=== PATIENT | male | born 1935 | race Caucasian/White ===

== ENCOUNTER 2017-05-06 05:58 | Inpatient (IN) ==
[2017-05-06] MEDS ORDERED: DIAZEPAM 5 MG TABLET PO ONE (07:04)
[2017-05-06] MEDS ORDERED: ASPIRIN 325 MG TABLET PO ONE (07:04)
[2017-05-06] MEDS ORDERED: diphenhydrAMINE CAP 25 MG CAPSULE PO ONE (07:04)
[2017-05-06] MEDS ORDERED: POTASSIUM CHLORIDE RIDER 10 MEQ in PREMIX 1 EACH IV PRN (07:04)
[2017-05-06] MEDS ORDERED: MAGNESIUM SULF RIDER 2 GM in PREMIX 1 EACH IV PRN (07:04)
[2017-05-06] MEDS ORDERED: DIAZEPAM 5 MG TABLET ONE (07:15)
[2017-05-06] MEDS ORDERED: HEPARIN/NACL 0.9% 2 UNITS/ML 2,000 ML IV ONE (07:15)
[2017-05-06] MEDS ORDERED: diphenhydrAMINE CAP 25 MG CAPSULE ONE (07:15)
[2017-05-06] MEDS ORDERED: LIDOCAINE 1% 20 ML VIAL ONE (07:15)
[2017-05-06] MEDS: SODIUM CHLORIDE 0.9% 1,000 ML IV SCH (07:27)
[2017-05-06] MEDS ORDERED: HYDROmorphone 2 MG/1 ML VIAL ONE (07:36)
[2017-05-06] MEDS ORDERED: MIDAZOLAM 2 MG/2 ML VIAL ONE (07:36)
[2017-05-06] MEDS ORDERED: NITROGLYCERIN DRIP 50 MG/250 ML BOTTLE IV ONE (07:44)
[2017-05-06] MEDS ORDERED: VERAPAMIL 5 MG/2 ML VIAL ONE (07:44)
[2017-05-06] MEDS ORDERED: ENOXAPARIN 30 MG/0.3 ML SYRINGE ONE (08:00)
[2017-05-06] MEDS ORDERED: SODIUM CHLORIDE 0.9% 1,000 ML IV SCH (08:30)
[2017-05-06] MEDS: ASPIRIN EC 81 MG TABLET PO SCH (16:05)
[2017-05-06] MEDS ORDERED: ONDANSETRON 4 MG/2 ML VIAL IV PRN (18:45)
[2017-05-06] MEDS ORDERED: ZALEPLON 5 MG CAPSULE PO PRN (18:45)
[2017-05-06] MEDS ORDERED: ACETAMINOPHEN 325 MG TABLET PO PRN (18:45)
[2017-05-06] MEDS ORDERED: guaiFENesin/DM ER 600-30 MG TABLET PO PRN (18:45)
[2017-05-06] MEDS ORDERED: BISACODYL 5 MG TABLET PO PRN (18:45)
[2017-05-07] MEDS: PANTOPRAZOLE 40 MG TABLET PO SCH (09:12)
[2017-05-07] MEDS: ASPIRIN EC 81 MG TABLET PO SCH (09:12)
[2017-05-07] MEDS: CHLORHEXIDINE 0.12% ORAL RINSE 60 ML BOTTLE SWISH/SPIT SCH (11:28)
[2017-05-07] MEDS: SODIUM CHLORIDE 0.9% 1,000 ML IV SCH ×2 (11:31→11:54)
[2017-05-07 12:13] LABS: Basophils % 0.3 % (0.0-0.8); Eosinophils # 0.2 10*3/uL (0.0-0.87); Eosinophils % 2.6 % (0.00-10.9); Hematocrit 38.3 VOL% (42.0-52.0); Hemoglobin 12.6 GM/DL (14.0-18.0); Immature Granulocytes % 0.3 %; Immature Granulocytes Absolute 0.02 #; Lymphocytes # 1.6 10*3/uL (1.4-4.0); Lymphocytes % 25.9 % (21.2-54.2); Mean Corpuscular HGB Conc 32.9 GM/DL (32-36); Mean Corpuscular Hemoglobin 31 PG (27-34); Mean Corpuscular Volume 93.2 FL (87-102); Mean Platelet Volume 10.9 FL (9.6-12.0); Monocytes # 0.7 10*3/uL (0.11-0.8); Monocytes % 11.1 % (1.7-12.7); Neutrophils # 3.7 10*3/uL (1.4-7.4); Neutrophils % 59.8 % (38.7-73.9); Platelet Count 150 T/CUMM (130-400); Red Blood Count 4.11 MC/CUMM (3.8-5.5); White Blood Count 6.1 T/CUMM (4-12)
[2017-05-07 12:43] LABS: Calcium 8.5 MG/DL (8.5-10.1); Magnesium 2.2 MG/DL (1.8-2.4); Osmolality,Calculated 285.1 MOS/KG (273-304); Potassium 4.5 MMOL/L (3.5-5.1)
[2017-05-07] MEDS ORDERED: MAGNESIUM HYDROXIDE SUSP 30 ML UDCUP PO PRN (17:13)
[2017-05-07] MEDS ORDERED: CHLORHEXIDINE 0.12% ORAL RINSE 60 ML BOTTLE SWISH/SPIT SCH (21:00)
[2017-05-08] MEDS: CHLORHEXIDINE 4% SOLN 118 ML BOTTLE TOP SCH ×2 (00:51→04:52)
[2017-05-08] MEDS: CHLORHEXIDINE 0.12% ORAL RINSE 60 ML BOTTLE SWISH/SPIT SCH ×2 (00:51→20:29)
[2017-05-08] MEDS ORDERED: VANCOMYCIN 1,000 MG VIAL ONE (05:21)
[2017-05-08] MEDS ORDERED: TISSUE ADHESIVE 1 EACH APPLICATOR TOP ONE (05:21)
[2017-05-08] MEDS ORDERED: PAPAVERINE 60 MG/2 ML VIAL ONE (05:21)
[2017-05-08] MEDS: PANTOPRAZOLE 40 MG TABLET PO SCH (05:54)
[2017-05-08] MEDS ORDERED: FAMOTIDINE 20 MG TABLET PO ONE (06:00)
[2017-05-08] MEDS ORDERED: CEFUROXIME INJ 1,500 MG in SODIUM CHLORIDE 0.9% 100 ML IV ONE (06:00)
[2017-05-08] MEDS ORDERED: DIAZEPAM 5 MG TABLET PO ONE (06:00)
[2017-05-08] MEDS ORDERED: DEXMEDETOMIDINE 200 MCG/2 ML VIAL IV ONE (06:15)
[2017-05-08 08:24] LABS: ABG Base Excess -0.6 MMOL/L (-2.5-2.5); ABG Oxygen Saturation 99.5 % (95-100); ABG PCO2 46.2 MM HG (35-48); ABG PH 7.348 (7.35-7.45); ABG TCO2 22.8 MMOL/L (23-27); Glucose Heart Surgery 132 MG/DL (74-106); Hematocrit Heart Surgery 35.4 PERCENT (42-52); Hemoglobin Heart Surgery 11.5 G/DL (14.0-18.0); PCO2 Patient Temp Arterial 46.2 MMHG; PH Patient Temp Arterial 7.348; Patient Temperature 37 CELCIUS; Potassium Heart/CVR 3.9 MMOL/L (3.5-5.1); Sodium Heart/CVR 140 MMOL/L (135-145)
[2017-05-08 08:39] LABS: Apearance,Urine CLEAR (Clear); Bilirubin,Urine Negative (Negative); Blood, Urine Negative (Negative); Glucose,Urine (UA) Negative (Negative); Ketones,Urine Negative (Negative); Nitrite,Urine Negative (Negative); Protein,Urine Negative; RBC,Urine 1 /HPF (0-4); Urine Color Straw (Yellow); Urine Specific Gravity 1.004 (1.001-1.035); Urine Urobilinogen < 2.0 EU/DL (0.2-1.0); WBC,Urine <1 /HPF (0-6)
[2017-05-08 09:50] LABS: Hemoglobin Heart Surgery 7.7 G/DL (14.0-18.0); PCO2 Patient Temp Venous 38.2 MM HG; PH Patient Temp Venous 7.444; PO2 Patient Temp Venous 37.9 MM HG; Potassium Heart/CVR 4.5 MMOL/L (3.5-5.1); VBG Base Excess 2.3 MEQ/L (0-4); VBG HCO3 26.2 MEQ/L (24-28); VBG Oxygen Saturation 79.3 %; VBG PCO2 44.1 MMHG (41-51); VBG PH 7.4; VBG PO2 46.6 MMHG (17-40)
[2017-05-08 10:08] LABS: Hematocrit Heart Surgery 24.7 PERCENT (42-52); Hemoglobin Heart Surgery 7.9 G/DL (14.0-18.0); PCO2 Patient Temp Venous 35.5 MM HG; PH Patient Temp Venous 7.509; PO2 Patient Temp Venous 34.6 MM HG; Potassium Heart/CVR 4.8 MMOL/L (3.5-5.1); VBG Base Excess 5.1 MEQ/L (0-4); VBG HCO3 28.8 MEQ/L (24-28); VBG Oxygen Saturation 77.6 %; VBG PCO2 39.1 MMHG (41-51); VBG PH 7.478; VBG PO2 39.8 MMHG (17-40)
[2017-05-08] MEDS ORDERED: NITROPRUSSIDE 50 MG/2 ML VIAL ONE (10:36)
[2017-05-08] MEDS ORDERED: SODIUM BICARBONATE 50 MEQ/50 ML SYRINGE IV ONE ×2 (10:37→11:08)
[2017-05-08] MEDS ORDERED: ATROPINE 1 MG/10 ML SYRINGE ONE (10:37)
[2017-05-08] MEDS ORDERED: PHENYLEPHRINE DRIP 0 MG/0 ML PREMIX IV ONE (10:37)
[2017-05-08] MEDS ORDERED: EPINEPHrine 1 MG/10 ML SYRINGE ONE (10:37)
[2017-05-08] MEDS ORDERED: CALCIUM CHLORIDE 1,000 MG/10 ML SYRINGE IV ONE (10:37)
[2017-05-08] MEDS ORDERED: POTASSIUM CHLORIDE RIDER 100 ML IV ONE (10:38)
[2017-05-08] MEDS ORDERED: THROMBIN TOPICAL (RECOMBINANT) 5,000 UNIT VIAL TOP ONE (10:45)
[2017-05-08 10:56] LABS: ABG Base Excess 0.8 MMOL/L (-2.5-2.5); ABG HCO3 25.1 MMOL/L (20-26); ABG Oxygen Saturation 96.6 % (95-100); ABG PCO2 37.8 MM HG (35-48); ABG PH 7.429 (7.35-7.45); ABG TCO2 22.9 MMOL/L (23-27); Glucose Heart Surgery 216 MG/DL (74-106); Hemoglobin Heart Surgery 9.3 G/DL (14.0-18.0); PCO2 Patient Temp Arterial 37.8 MMHG; PH Patient Temp Arterial 7.429; Patient Temperature 37 CELCIUS; Potassium Heart/CVR 4.2 MMOL/L (3.5-5.1); Sodium Heart/CVR 136 MMOL/L (135-145)
[2017-05-08] MEDS ORDERED: PROTAMINE SULFATE 250 MG/25 ML VIAL IV ONE (11:08)
[2017-05-08] MEDS ORDERED: DEXTROSE 5% KCL 20 MEQ 20 MEQ/1,000 ML BAG IV ONE (11:08)
[2017-05-08] MEDS ORDERED: MAGNESIUM SULFATE 1 GM/2 ML VIAL ONE (11:08)
[2017-05-08] MEDS ORDERED: ALBUMIN 25% 25 GM/100 ML VIAL IV ONE (11:08)
[2017-05-08] MEDS ORDERED: HEPARIN 10,000 UNIT/10 ML VIAL ONE (11:09)
[2017-05-08] MEDS ORDERED: MANNITOL 12.5 GM/50 ML VIAL IV ONE (11:09)
[2017-05-08] MEDS ORDERED: methylPREDNISolone SOD SUC 1,000 MG/8 ML VIAL ONE (11:09)
[2017-05-08] MEDS ORDERED: FUROSEMIDE 20 MG/2 ML VIAL ONE (11:09)
[2017-05-08] MEDS ORDERED: PHENYLEPHRINE 10 MG/1 ML VIAL IV ONE (11:09)
[2017-05-08] MEDS: SODIUM CHLORIDE 0.45% 1,000 ML IV SCH ×2 (11:45)
[2017-05-08] MEDS ORDERED: EPINEPHrine 1 MG/ML VIAL ONE ×2 (11:51→11:52)
[2017-05-08] MEDS ORDERED: SUFentanil 250 MCG/5 ML AMP ONE (12:03)
[2017-05-08] MEDS ORDERED: MIDAZOLAM 10 MG/2 ML VIAL ONE (12:03)
[2017-05-08] MEDS ORDERED: ePHEDrine 50 MG/ML AMP ONE (12:04)
[2017-05-08] MEDS ORDERED: VECURONIUM 10 MG VIAL IV ONE (12:06)
[2017-05-08] MEDS ORDERED: SEVOFLURANE 1 UNIT/15 MINUTE INH ONE (12:06)
[2017-05-08] MEDS ORDERED: CALCIUM CHLORIDE 1,000 MG/10 ML VIAL IV ONE (12:06)
[2017-05-08] MEDS ORDERED: TRANEXAMIC ACID 1,000 MG/10 ML VIAL IV ONE (12:06)
[2017-05-08] MEDS ORDERED: SODIUM CHLORIDE 0.9% 300 ML IV ONE (12:07)
[2017-05-08] MEDS ORDERED: LACTATED RINGERS 1,000 ML IV ONE (12:07)
[2017-05-08] MEDS ORDERED: ETOMIDATE 40 MG/20 ML VIAL IV ONE (12:07)
[2017-05-08] MEDS ORDERED: ALBUMIN 5% 12.5 GM/250 ML VIAL IV ONE (12:07)
[2017-05-08] MEDS ORDERED: SODIUM CHLORIDE 0.9% 250 ML IV ONE (12:07)
[2017-05-08] MEDS ORDERED: NITROGLYCERIN DRIP 50 MG/250 ML BOTTLE IV ONE (12:07)
[2017-05-08] MEDS ORDERED: SODIUM CHLORIDE 0.9% 2,000 ML IV ONE (12:07)
[2017-05-08] MEDS ORDERED: MAGNESIUM SULF RIDER 4 GM in PREMIX 1 EACH IV PRN (12:23)
[2017-05-08] MEDS ORDERED: INSULIN REGULAR DRIP 100 ML IV SCH (12:23)
[2017-05-08] MEDS ORDERED: ACETAMINOPHEN 650 MG SUPP RECTAL PRN (12:23)
[2017-05-08] MEDS ORDERED: SODIUM CHLORIDE 0.9% 250 ML IV PRN (12:23)
[2017-05-08] MEDS ORDERED: CALCIUM CHLORIDE 1,000 MG/10 ML SYRINGE IV PRN (12:23)
[2017-05-08] MEDS ORDERED: POTASSIUM CHLORIDE RIDER 10 MEQ in PREMIX 1 EACH IV PRN (12:23)
[2017-05-08] MEDS ORDERED: MORPHINE 10 MG/1 ML VIAL IV PRN (12:23)
[2017-05-08] MEDS ORDERED: CHLORHEXIDINE 4% SOLN 118 ML BOTTLE TOP PRN (12:23)
[2017-05-08] MEDS ORDERED: MAGNESIUM SULF RIDER 2 GM in PREMIX 1 EACH IV PRN (12:23)
[2017-05-08] MEDS ORDERED: INSULIN REGULAR 100 UNIT/ML IV PRN (12:23)
[2017-05-08] MEDS ORDERED: ONDANSETRON 4 MG/2 ML VIAL IV PRN (12:23)
[2017-05-08] MEDS ORDERED: DEXTROSE 50% 25 GM/50 ML VIAL IV PRN ×2 (12:23)
[2017-05-08 12:26] LABS: ABG Base Excess -2.5 MMOL/L (-2.5-2.5); ABG HCO3 22.3 MMOL/L (20-26); ABG Oxygen Saturation 98.8 % (95-100); ABG PCO2 50.1 MM HG (35-48); ABG PH 7.298 (7.35-7.45); Glucose Heart Surgery 182 MG/DL (74-106); Hematocrit Heart Surgery 37.6 PERCENT (42-52); Hemoglobin Heart Surgery 12.2 G/DL (14.0-18.0); Potassium Heart/CVR 3.4 MMOL/L (3.5-5.1)
[2017-05-08 12:28] LABS: Basophils % 0.2 % (0.0-0.8); Eosinophils # 0.1 10*3/uL (0.0-0.87); Eosinophils % 0.9 % (0.00-10.9); Hematocrit 30.4 VOL% (42.0-52.0); Immature Granulocytes % 0.8 %; Immature Granulocytes Absolute 0.09 #; Lymphocytes # 2.5 10*3/uL (1.4-4.0); Lymphocytes % 21.5 % (21.2-54.2); Mean Corpuscular HGB Conc 32.2 GM/DL (32-36); Mean Corpuscular Hemoglobin 30 PG (27-34); Mean Corpuscular Volume 94.4 FL (87-102); Mean Platelet Volume 11.6 FL (9.6-12.0); Monocytes # 0.9 10*3/uL (0.11-0.8); Monocytes % 7.7 % (1.7-12.7); Neutrophils % 68.9 % (38.7-73.9); Red Cell Distribution Width 13.1 % (9.3-17.3)
[2017-05-08 12:34] LABS: PT Patient Result 10.8 SECS; Partial Thromboplastin Time 26.9 SECS (0-40)
[2017-05-08 12:35] LABS: Hemoglobin 9.8 GM/DL (14.0-18.0); Platelet Count 124 T/CUMM (130-400); Red Blood Count 3.22 MC/CUMM (3.8-5.5); White Blood Count 11.5 T/CUMM (4-12)
[2017-05-08 12:44] LABS: Blood Urea Nitrogen 16 MG/DL (7-18); Calcium 8.5 MG/DL (8.5-10.1); Glucose 170 MG/DL (74-106); Magnesium 2.5 MG/DL (1.8-2.4); Osmolality,Calculated 290.8 MOS/KG (273-304); Potassium 3.4 MMOL/L (3.5-5.1); Sodium 144 MMOL/L (136-145)
[2017-05-08] MEDS: MIDAZOLAM 2 MG/2 ML VIAL IV PRN ×3 (13:57→15:30)
[2017-05-08] MEDS: POTASSIUM CHLORIDE RIDER 20 MEQ in PREMIX 1 EACH IV PRN ×2 (14:00→14:45)
[2017-05-08] MEDS: MORPHINE 2 MG/1 ML SYRINGE IV PRN ×2 (15:35→17:45)
[2017-05-08 16:43] LABS: ABG Base Excess -2.1 MMOL/L (-2.5-2.5); ABG HCO3 22.6 MMOL/L (20-26); ABG PCO2 42.3 MM HG (35-48); ABG PH 7.351 (7.35-7.45); ABG TCO2 21.3 MMOL/L (23-27); Glucose Heart Surgery 182 MG/DL (74-106); Hematocrit Heart Surgery 31.4 PERCENT (42-52); Hemoglobin Heart Surgery 10.1 G/DL (14.0-18.0); Potassium Heart/CVR 4.3 MMOL/L (3.5-5.1)
[2017-05-08] MEDS: ALBUMIN 5% 12.5 GM in PREMIX 1 EACH IV PRN (17:20)
[2017-05-08 18:52] LABS: ABG Base Excess -2.2 MMOL/L (-2.5-2.5); ABG HCO3 22.6 MMOL/L (20-26); ABG Oxygen Saturation 95.3 % (95-100); ABG PCO2 36.5 MM HG (35-48); ABG PH 7.394 (7.35-7.45); ABG PO2 80.9 MM HG (80-95); ABG TCO2 20.5 MMOL/L (23-27); Glucose Heart Surgery 187 MG/DL (74-106); Hematocrit Heart Surgery 28.7 PERCENT (42-52); Hemoglobin Heart Surgery 9.3 G/DL (14.0-18.0); Potassium Heart/CVR 4.4 MMOL/L (3.5-5.1)
[2017-05-08 19:37] LABS: Lactic Acid 4.1 MMOL/L (0.4-2.0)
[2017-05-08] MEDS: CEFUROXIME INJ 1,500 MG in SYRINGE 1 EACH IV SCH (19:59)
[2017-05-08] MEDS ORDERED: NITROGLYCERIN DRIP 50 MG/250 ML BOTTLE IV SCH (21:00)
[2017-05-09] MEDS: SODIUM CHLORIDE 0.45% 1,000 ML IV SCH ×2 (01:35→09:56)
[2017-05-09 04:35] LABS: Hematocrit 23.7 VOL% (42.0-52.0); Hemoglobin 8.1 GM/DL (14.0-18.0); Immature Granulocytes % 0.5 %; Immature Granulocytes Absolute 0.07 #; Lymphocytes # 0.9 10*3/uL (1.4-4.0); Lymphocytes % 6.8 % (21.2-54.2); Mean Corpuscular HGB Conc 34.2 GM/DL (32-36); Mean Corpuscular Hemoglobin 32 PG (27-34); Mean Corpuscular Volume 93.3 FL (87-102); Mean Platelet Volume 12.1 FL (9.6-12.0); Monocytes # 1.1 10*3/uL (0.11-0.8); Monocytes % 8.5 % (1.7-12.7); Neutrophils # 10.9 10*3/uL (1.4-7.4); Neutrophils % 84.2 % (38.7-73.9); Platelet Count 105 T/CUMM (130-400); Red Blood Count 2.54 MC/CUMM (3.8-5.5); Red Cell Distribution Width 13.2 % (9.3-17.3)
[2017-05-09 04:37] LABS: Calcium 7.7 MG/DL (8.5-10.1); Magnesium 1.9 MG/DL (1.8-2.4); Osmolality,Calculated 282.4 MOS/KG (273-304); Potassium 4.3 MMOL/L (3.5-5.1)
[2017-05-09] MEDS: CEFUROXIME INJ 1,500 MG in SYRINGE 1 EACH IV SCH ×2 (08:22→20:57)
[2017-05-09] MEDS ORDERED: FUROSEMIDE 40 MG/4 ML VIAL IV ONE (08:34)
[2017-05-09] MEDS: ALBUMIN 5% 12.5 GM in PREMIX 1 EACH IV PRN ×2 (09:11→09:48)
[2017-05-09] MEDS: FUROSEMIDE 40 MG TABLET PO SCH (09:27)
[2017-05-09] MEDS: CLOPIDOGREL 75 MG TABLET PO SCH (09:28)
[2017-05-09] MEDS: ASPIRIN EC 325 MG TABLET PO SCH (09:28)
[2017-05-09 09:44] LABS: Hematocrit 26.5 VOL% (42.0-52.0); Hemoglobin 8.8 GM/DL (14.0-18.0)
[2017-05-09] MEDS: CHLORHEXIDINE 0.12% ORAL RINSE 60 ML BOTTLE SWISH/SPIT SCH ×2 (11:10→20:57)
[2017-05-09] MEDS: INSULIN REGULAR 100 UNIT/ML SUBCUT SCH ×4 (13:43→23:47)
[2017-05-09] MEDS ORDERED: METOPROLOL TARTRATE 25 MG TABLET PO SCH (14:26)
[2017-05-09] MEDS ORDERED: [UNRECOGNIZED DRUG - OTHER] PO SCH (14:26)
[2017-05-09] MEDS: CHLORHEXIDINE 4% SOLN 118 ML BOTTLE TOP SCH (15:38)
[2017-05-09] MEDS: SODIUM CHLORIDE 0.9% 1,000 ML IV SCH (15:39)
[2017-05-09] MEDS: CYANOCOBALAMIN 500 MCG TABLET PO SCH (15:48)
[2017-05-09] MEDS: DOCUSATE SODIUM 100 MG CAPSULE PO SCH (15:48)
[2017-05-09] MEDS: MULTIVITAMIN (CENTRUM) TABLET PO SCH (15:48)
[2017-05-09] MEDS: CHOLECALCIFEROL 1,000 UNIT TABLET PO SCH (15:48)
[2017-05-09] MEDS: VITAMIN E 400 UNIT CAPSULE PO SCH (15:48)
[2017-05-09] MEDS: OMEGA 3 ACID ETHYL ESTERS 1 GM CAPSULE PO SCH (15:48)
[2017-05-09] MEDS: PANTOPRAZOLE 40 MG TABLET PO SCH (15:48)
[2017-05-09] MEDS: MAGNESIUM GLUCONATE 500 MG TABLET PO SCH (15:51)
[2017-05-09] MEDS: POTASSIUM GLUCONATE 500 MG TABLET PO SCH (15:51)
[2017-05-09] MEDS ORDERED: METOPROLOL TARTRATE 25 MG TABLET PO ONE (20:38)
[2017-05-09] MEDS: ATORVASTATIN 40 MG TABLET PO SCH (20:55)
[2017-05-10 05:22] LABS: Basophils % 0.1 % (0.0-0.8); Eosinophils % 0.1 % (0.00-10.9); Hematocrit 27.7 VOL% (42.0-52.0); Hemoglobin 9.3 GM/DL (14.0-18.0); Immature Granulocytes % 0.7 %; Immature Granulocytes Absolute 0.08 #; Lymphocytes # 1.6 10*3/uL (1.4-4.0); Lymphocytes % 14.2 % (21.2-54.2); Mean Corpuscular HGB Conc 33.6 GM/DL (32-36); Mean Corpuscular Hemoglobin 31 PG (27-34); Mean Corpuscular Volume 92.3 FL (87-102); Mean Platelet Volume 12.5 FL (9.6-12.0); Monocytes # 1.1 10*3/uL (0.11-0.8); Monocytes % 9.4 % (1.7-12.7); Neutrophils # 8.6 10*3/uL (1.4-7.4); Neutrophils % 75.5 % (38.7-73.9); Platelet Count 98 T/CUMM (130-400); Red Cell Distribution Width 13.8 % (9.3-17.3); White Blood Count 11.4 T/CUMM (4-12)
[2017-05-10 05:43] LABS: Calcium 8.1 MG/DL (8.5-10.1); Magnesium 2.6 MG/DL (1.8-2.4); Osmolality,Calculated 286.3 MOS/KG (273-304); Potassium 4.2 MMOL/L (3.5-5.1)
[2017-05-10 06:25] LABS: Hypochromasia 1+; Macrocytosis 1+; Platelet Estimate Decreased
[2017-05-10] MEDS: INSULIN REGULAR 100 UNIT/ML SUBCUT SCH ×4 (08:37→22:41)
[2017-05-10] MEDS: MULTIVITAMIN (CENTRUM) TABLET PO SCH (08:41)
[2017-05-10] MEDS: CLOPIDOGREL 75 MG TABLET PO SCH (08:41)
[2017-05-10] MEDS: CHOLECALCIFEROL 1,000 UNIT TABLET PO SCH (08:41)
[2017-05-10] MEDS: VITAMIN E 400 UNIT CAPSULE PO SCH (08:41)
[2017-05-10] MEDS: OMEGA 3 ACID ETHYL ESTERS 1 GM CAPSULE PO SCH (08:41)
[2017-05-10] MEDS: DOCUSATE SODIUM 100 MG CAPSULE PO SCH (08:41)
[2017-05-10] MEDS: FUROSEMIDE 40 MG TABLET PO SCH (08:41)
[2017-05-10] MEDS: CYANOCOBALAMIN 500 MCG TABLET PO SCH (08:41)
[2017-05-10] MEDS: MAGNESIUM GLUCONATE 500 MG TABLET PO SCH (08:41)
[2017-05-10] MEDS: POTASSIUM GLUCONATE 500 MG TABLET PO SCH (08:42)
[2017-05-10] MEDS: METOPROLOL TARTRATE 25 MG TABLET PO SCH ×2 (08:42→22:41)
[2017-05-10] MEDS: ASPIRIN EC 325 MG TABLET PO SCH (08:42)
[2017-05-10] MEDS: CHLORHEXIDINE 0.12% ORAL RINSE 60 ML BOTTLE SWISH/SPIT SCH ×2 (08:43→22:42)
[2017-05-10] MEDS: PANTOPRAZOLE 40 MG TABLET PO SCH (09:57)
[2017-05-10] MEDS: LISINOPRIL 2.5 MG TABLET PO SCH (11:32)
[2017-05-10] MEDS ORDERED: ACETAMINOPHEN 325 MG TABLET PO PRN (11:39)
[2017-05-10] MEDS ORDERED: CLORAZEPATE 3.75 MG TABLET PO PRN (18:49)
[2017-05-10] MEDS ORDERED: ALBUTEROL/IPRATROPIUM 3 ML NEB RESP TX PRN (20:26)
[2017-05-10] MEDS: ATORVASTATIN 40 MG TABLET PO SCH (20:54)
[2017-05-10] MEDS ORDERED: LACTATED RINGERS 500 ML IV ONE (23:33)
[2017-05-11 06:04] LABS: Basophils % 0.2 % (0.0-0.8); Eosinophils # 0.1 10*3/uL (0.0-0.87); Hematocrit 28.1 VOL% (42.0-52.0); Immature Granulocytes % 0.5 %; Immature Granulocytes Absolute 0.05 #; Lymphocytes # 1.8 10*3/uL (1.4-4.0); Lymphocytes % 19.1 % (21.2-54.2); Mean Corpuscular Hemoglobin 31 PG (27-34); Mean Corpuscular Volume 96.2 FL (87-102); Mean Platelet Volume 12.4 FL (9.6-12.0); Monocytes # 1.1 10*3/uL (0.11-0.8); Monocytes % 11.1 % (1.7-12.7); Neutrophils # 6.4 10*3/uL (1.4-7.4); Neutrophils % 68.1 % (38.7-73.9); Platelet Count 107 T/CUMM (130-400); Red Blood Count 2.92 MC/CUMM (3.8-5.5); Red Cell Distribution Width 13.3 % (9.3-17.3); White Blood Count 9.5 T/CUMM (4-12)
[2017-05-11 06:11] LABS: Calcium 8.1 MG/DL (8.5-10.1); Magnesium 2.3 MG/DL (1.8-2.4); Osmolality,Calculated 286.3 MOS/KG (273-304); Potassium 3.6 MMOL/L (3.5-5.1)
[2017-05-11] MEDS ORDERED: LACTATED RINGERS 500 ML IV ONE ×2 (08:22→09:59)
[2017-05-11] MEDS: FUROSEMIDE 40 MG TABLET PO SCH (08:23)
[2017-05-11] MEDS: METOPROLOL TARTRATE 25 MG TABLET PO SCH (08:24)
[2017-05-11] MEDS: LISINOPRIL 2.5 MG TABLET PO SCH (08:24)
[2017-05-11] MEDS: INSULIN REGULAR 100 UNIT/ML SUBCUT SCH ×4 (09:34→21:00)
[2017-05-11] MEDS: PANTOPRAZOLE 40 MG TABLET PO SCH (09:35)
[2017-05-11] MEDS: ASPIRIN EC 325 MG TABLET PO SCH (09:35)
[2017-05-11] MEDS: VITAMIN E 400 UNIT CAPSULE PO SCH (09:35)
[2017-05-11] MEDS: OMEGA 3 ACID ETHYL ESTERS 1 GM CAPSULE PO SCH (09:35)
[2017-05-11] MEDS: MAGNESIUM GLUCONATE 500 MG TABLET PO SCH (09:35)
[2017-05-11] MEDS: POTASSIUM GLUCONATE 500 MG TABLET PO SCH (09:35)
[2017-05-11] MEDS: CHOLECALCIFEROL 1,000 UNIT TABLET PO SCH (09:35)
[2017-05-11] MEDS: DOCUSATE SODIUM 100 MG CAPSULE PO SCH (09:35)
[2017-05-11] MEDS: CYANOCOBALAMIN 500 MCG TABLET PO SCH (09:35)
[2017-05-11] MEDS: CHLORHEXIDINE 0.12% ORAL RINSE 60 ML BOTTLE SWISH/SPIT SCH ×2 (09:36→21:14)
[2017-05-11] MEDS: MULTIVITAMIN (CENTRUM) TABLET PO SCH (09:36)
[2017-05-11] MEDS: CLOPIDOGREL 75 MG TABLET PO SCH (09:36)
[2017-05-11] MEDS: LEVOFLOXACIN 750 MG TABLET PO SCH (10:26)
[2017-05-11] MEDS: BISACODYL 5 MG TABLET PO SCH (10:26)
[2017-05-11 10:40] LABS: Apearance,Urine CLEAR (Clear); Bilirubin,Urine Negative (Negative); Blood, Urine Small mg/dL (Negative); Glucose,Urine (UA) Negative (Negative); Ketones,Urine Negative (Negative); Nitrite,Urine Negative (Negative); Protein,Urine Negative; RBC,Urine 6 /HPF (0-4); Squamous Epithelial Cell,Urine Occasional /HPF (0-10); Urine Color Yellow (Yellow); Urine Specific Gravity 1.018 (1.001-1.035); Urine Urobilinogen < 2.0 EU/DL (0.2-1.0); WBC,Urine 10 /HPF (0-6)
[2017-05-11] MEDS: ATORVASTATIN 40 MG TABLET PO SCH (21:13)
[2017-05-12] MEDS: BISACODYL 5 MG TABLET PO SCH (09:24)
[2017-05-12] MEDS: CLOPIDOGREL 75 MG TABLET PO SCH (09:25)
[2017-05-12] MEDS: DOCUSATE SODIUM 100 MG CAPSULE PO SCH (09:25)
[2017-05-12] MEDS: ASPIRIN EC 325 MG TABLET PO SCH (09:25)
[2017-05-12] MEDS: LEVOFLOXACIN 750 MG TABLET PO SCH (09:25)
[2017-05-12] MEDS: PANTOPRAZOLE 40 MG TABLET PO SCH (09:25)
[2017-05-12] MEDS: OMEGA 3 ACID ETHYL ESTERS 1 GM CAPSULE PO SCH (09:25)
[2017-05-12] MEDS: CYANOCOBALAMIN 500 MCG TABLET PO SCH (09:25)
[2017-05-12] MEDS: MULTIVITAMIN (CENTRUM) TABLET PO SCH (09:25)
[2017-05-12] MEDS: CHOLECALCIFEROL 1,000 UNIT TABLET PO SCH (09:25)
[2017-05-12] MEDS: VITAMIN E 400 UNIT CAPSULE PO SCH (09:25)
[2017-05-12] MEDS: POTASSIUM GLUCONATE 500 MG TABLET PO SCH (09:27)
[2017-05-12] MEDS: CHLORHEXIDINE 0.12% ORAL RINSE 60 ML BOTTLE SWISH/SPIT SCH (09:27)
[2017-05-12] MEDS: MAGNESIUM GLUCONATE 500 MG TABLET PO SCH (09:27)
[2017-05-12] MEDS: INSULIN REGULAR 100 UNIT/ML SUBCUT SCH (13:40)
[2017-05-12 17:47] VITALS: BP 159/70
== END 2017-05-12 18:40 | disposition home health service (06) | DRG 233 ==
LOC: N.CL 05:58 → N.TELES 14:20 → N.CVR 05-08 10:10 → N.ICU 05-09 07:26 → N.TELES 05-09 14:10
PROVIDERS: ADMIT Internal Medicine Cardiovascular Disease; ATTEND Internal Medicine Cardiovascular Disease

== ENCOUNTER 2018-04-01 19:46 | Inpatient (IN) ==
[2018-04-01] MEDS ORDERED: ASPIRIN 325 MG TABLET PO STA (20:00)
[2018-04-01] MEDS ORDERED: SODIUM CHLORIDE 0.9% 500 ML IV STA (20:00)
[2018-04-01 20:21] LABS: Basophils % 0.4 % (0.0-0.8); Eosinophils # 0.4 10*3/uL (0.0-0.87); Hematocrit 43.2 VOL% (42.0-52.0); Hemoglobin 14.1 GM/DL (14.0-18.0); Immature Granulocytes % 0.5 %; Immature Granulocytes Absolute 0.04 #; Lymphocytes # 2.5 10*3/uL (1.4-4.0); Lymphocytes % 33.7 % (21.2-54.2); Mean Corpuscular HGB Conc 32.6 GM/DL (32-36); Mean Corpuscular Hemoglobin 31 PG (27-34); Mean Corpuscular Volume 93.9 FL (87-102); Mean Platelet Volume 11.4 FL (9.6-12.0); Monocytes # 0.8 10*3/uL (0.11-0.8); Monocytes % 11.1 % (1.7-12.7); Neutrophils # 3.6 10*3/uL (1.4-7.4); Neutrophils % 49.3 % (38.7-73.9); Platelet Count 168 T/CUMM (130-400); Red Cell Distribution Width 13.1 % (9.3-17.3); White Blood Count 7.4 T/CUMM (4-12)
[2018-04-01 20:34] LABS: INR 0.9; PT Patient Result 9.7 SECS; Partial Thromboplastin Time 24.3 SECS (0-40)
[2018-04-01 20:59] LABS: Alanine Aminotransferase 18 U/L (16-61); Albumin 3.5 G/DL (3.4-5.0); Alkaline Phosphatase 93 U/L (45-117); Aspartate Amino Transferase 24 U/L (0-37); Blood Urea Nitrogen 23 MG/DL (7-18); Calcium 8.5 MG/DL (8.5-10.1); Glucose 108 MG/DL (74-106); Osmolality,Calculated 281.5 MOS/KG (273-304); Potassium 4.9 MMOL/L (3.5-5.1); Sodium 139 MMOL/L (136-145); Total Protein 7.1 G/DL (6.4-8.3)
[2018-04-01] MEDS ORDERED: ONDANSETRON 4 MG/2 ML VIAL IV PRN (21:39)
[2018-04-01] MEDS ORDERED: ACETAMINOPHEN 325 MG TABLET PO PRN (21:39)
[2018-04-01] MEDS: SODIUM CHLORIDE 0.9% 1,000 ML IV SCH (23:20)
[2018-04-02 04:53] LABS: Barbiturates Screen,Urine Negative (Negative); Benzodiazepines Screen,Urine Negative (Negative); Cannabinoid Screen,Urine Negative (Negative); Opiate Screen,Urine Positive (Negative); Phencyclidine Screen,Urine Negative (Negative)
[2018-04-02 04:55] LABS: Apearance,Urine CLEAR (Clear); Bacteria,Urine Occasional /HPF (Few); Bilirubin,Urine Negative (Negative); Blood, Urine Negative (Negative); Glucose,Urine (UA) Negative (Negative); Hyaline Casts,Urine 1 /LPF (0-3); Ketones,Urine Negative (Negative); Mucus,Urine Occasional /LPF (Occasional); Nitrite,Urine Negative (Negative); Protein,Urine Negative; RBC,Urine 3 /HPF (0-4); Squamous Epithelial Cell,Urine Occasional /HPF (0-10); Urine Color Yellow (Yellow); Urine Specific Gravity 1.021 (1.001-1.035); Urine Urobilinogen < 2.0 EU/DL (0.2-1.0); WBC,Urine 1 /HPF (0-6)
[2018-04-02 06:10] LABS: Basophils % 0.5 % (0.0-0.8); Eosinophils # 0.3 10*3/uL (0.0-0.87); Eosinophils % 4.5 % (0.00-10.9); Hematocrit 40.3 VOL% (42.0-52.0); Immature Granulocytes % 0.8 %; Immature Granulocytes Absolute 0.05 #; Lymphocytes # 2.3 10*3/uL (1.4-4.0); Lymphocytes % 36.7 % (21.2-54.2); Mean Corpuscular HGB Conc 32.3 GM/DL (32-36); Mean Corpuscular Hemoglobin 30 PG (27-34); Mean Corpuscular Volume 93.7 FL (87-102); Mean Platelet Volume 11.7 FL (9.6-12.0); Monocytes # 0.7 10*3/uL (0.11-0.8); Monocytes % 11.3 % (1.7-12.7); Neutrophils # 2.9 10*3/uL (1.4-7.4); Neutrophils % 46.2 % (38.7-73.9); Platelet Count 147 T/CUMM (130-400); Red Cell Distribution Width 13.2 % (9.3-17.3); White Blood Count 6.2 T/CUMM (4-12)
[2018-04-02 06:40] LABS: Calcium 8.2 MG/DL (8.5-10.1); Osmolality,Calculated 285.1 MOS/KG (273-304); Potassium 4.2 MMOL/L (3.5-5.1); Risk Ratio 5.64; Total Protein 6.4 G/DL (6.4-8.3)
[2018-04-02 06:48] LABS: Troponin I < 0.015 NG/ML (0.00-0.045)
[2018-04-02] MEDS: MEMANTINE 5 MG TABLET PO SCH (11:34)
[2018-04-02] MEDS: ASPIRIN 325 MG TABLET PO SCH (11:34)
[2018-04-02] MEDS: OLANZapine 2.5 MG TABLET PO SCH (11:34)
[2018-04-02] MEDS: PANTOPRAZOLE 40 MG TABLET PO SCH (11:34)
[2018-04-02] MEDS: CLOPIDOGREL 75 MG TABLET PO SCH (11:34)
[2018-04-02] MEDS: ENOXAPARIN 40 MG/0.4 ML SYRINGE SUBCUT SCH (11:35)
[2018-04-02] MEDS ORDERED: ATORVASTATIN 40 MG TABLET PO SCH (21:00)
[2018-04-02] MEDS: SODIUM CHLORIDE 0.9% 1,000 ML IV SCH (21:40)
[2018-04-03] MEDS: ENOXAPARIN 40 MG/0.4 ML SYRINGE SUBCUT SCH (08:41)
[2018-04-03] MEDS: OLANZapine 2.5 MG TABLET PO SCH (08:41)
[2018-04-03] MEDS: ASPIRIN 325 MG TABLET PO SCH (08:41)
[2018-04-03] MEDS: CLOPIDOGREL 75 MG TABLET PO SCH (08:41)
[2018-04-03] MEDS: MEMANTINE 5 MG TABLET PO SCH (08:41)
[2018-04-03] MEDS: PANTOPRAZOLE 40 MG TABLET PO SCH (08:41)
[2018-04-03 12:12] VITALS: BP 94/50
== END 2018-04-03 12:55 | disposition home health service (06) | DRG 65 ==
LOC: EDBD → EDUNIT# → N.ED 19:46 → N.4E 21:36 → SUATTDRO 21:36 → N.4E 23:09
PROVIDERS: ADMIT Family Medicine; ATTEND Internal Medicine Cardiovascular Disease